=== PATIENT | female | born 1995 ===

== ENCOUNTER 2023-05-12 20:48 | Inpatient (IN) | payer BC ==
[2023-05-12 21:15] VITALS: BMI 35.3
[2023-05-12 22:08] LABS: Fetal Membranes Rupture RUPTURE DETECTED (No Rupture)
[2023-05-12] MEDS ORDERED: fentaNYL 50 mcg/mL 1 mL Vial SLOW IVP PRN (23:10)
[2023-05-12] MEDS ORDERED: Tranexamic Acid 1,000 MG/10 ML VIAL IVP PRN (23:11)
[2023-05-12] MEDS ORDERED: Lidocaine 1% (PF) 30 ML VIAL SC PRN (23:15)
[2023-05-12] MEDS ORDERED: Oxytocin 30 units/NS 500 ML 500 ML IV SCH (23:15)
[2023-05-12] MEDS ORDERED: Ibuprofen 800 MG TAB PO PRN (23:15)
[2023-05-12] MEDS ORDERED: Methylergonovine 0.2 MG/ML VIAL IM PRN (23:15)
[2023-05-12] MEDS ORDERED: Promethazine HCl 25 MG/ML VIAL IM PRN (23:15)
[2023-05-12] MEDS ORDERED: Ondansetron PF 4 MG/2 ML Vial IVP PRN (23:15)
[2023-05-12] MEDS ORDERED: Carboprost 250 MCG/ML AMP IM PRN (23:15)
[2023-05-12] MEDS ORDERED: hydrALAZINE 20 MG/ML VIAL SLOW IVP PRN (23:15)
[2023-05-12] MEDS ORDERED: Misoprostol 200 MCG TAB RC PRN (23:15)
[2023-05-12] MEDS ORDERED: Acetaminophen 500 MG TAB PO PRN (23:15)
[2023-05-12] MEDS ORDERED: Oxytocin 30 units/NS 500 ML 500 ML IVPB SCH (23:15)
[2023-05-12 23:22] LABS: Hematocrit 41.6 % (34.9-44.5); Hemoglobin 13.7 g/dL (12.0-15.5); Mean Corpuscular HGB CONC 32.9 g/dL (32.0-36.0); Mean Corpuscular Hemoglobin 27.2 pg (27.0-33.0); Mean Corpuscular Volume 82.7 fl (81.6-98.3); Platelet Count 118 10x3/uL (150-450); RBC Distribution Width 14.6 % (11.5-14.5); Red Blood Cell (RBC) Count 5.03 10x6/uL (3.90-5.03); White Blood Cell (WBC) Count 15.9 10x3/uL (3.5-10.5)
[2023-05-12 23:42] LABS: HBSAg Index 0.16 S/CO (0-0.99); Hep B Surf Ag - L&D Non-Reactive S/CO (NonReactive)
[2023-05-12 23:43] LABS: Syphilis Antibody Nonreactive (Nonreactive); Syphilis Antibody Index 0.03 S/CO (<1.00 Non-Reactive)
[2023-05-12 23:49] LABS: Mean Platelet Volume 14.3 fl (7.4-10.4)
[2023-05-13] MEDS: Misoprostol 100 MCG TAB PO SCH ×2 (02:00→06:08)
[2023-05-13] MEDS: Lactated Ringer's 1,000 ML IV SCH (09:45)
[2023-05-13] MEDS ORDERED: fentaNYL/Ropivacaine Epidural 100 ML ONE (16:24)
[2023-05-13] MEDS ORDERED: Moisturizing Cream (Eucerin) 113 GM JAR TOP PRN ×2 (17:20→21:14)
[2023-05-13] MEDS ORDERED: ePHEDrine Sulfate 50 MG/10 ML VIAL SLOW IVP PRN (17:20)
[2023-05-13] MEDS ORDERED: Ondansetron PF 4 MG/2 ML Vial IVP PRN ×4 (17:20→23:40)
[2023-05-13] MEDS ORDERED: diphenhydrAMINE 50 MG/ML VIAL IVP PRN ×2 (17:20→21:14)
[2023-05-13] MEDS ORDERED: Lactated Ringer's 500 ML IV PRN (17:20)
[2023-05-13] MEDS ORDERED: Naloxone HCl 0.4 mg/ml Vial IVP PRN ×4 (17:20→21:14)
[2023-05-13] MEDS ORDERED: Promethazine HCl 25 MG/ML VIAL IM PRN ×2 (17:20→21:14)
[2023-05-13] MEDS ORDERED: Acetaminophen 325 MG TAB PO PRN (17:20)
[2023-05-13] MEDS ORDERED: fentaNYL 2 mcg/Ropivacaine 0.2% Epidural 100 ML CADD EPIDURAL SCH (17:30)
[2023-05-13] MEDS ORDERED: Communication Order-Pharmacy FS SCH ×2 (17:30→21:15)
[2023-05-13] MEDS ORDERED: CEFAZOLIN 2 GM VIAL ONE (19:14)
[2023-05-13] MEDS ORDERED: Azithromycin 500 MG VIAL ONE (19:15)
[2023-05-13] MEDS ORDERED: Morphine PF 10 MG/10 ML VIAL ONE (19:53)
[2023-05-13] MEDS ORDERED: Lidocaine 2% MPF 10 ML AMP (For Epidural Use) ONE (19:53)
[2023-05-13] MEDS ORDERED: Dexmedetomidine 200 MCG/2 ML VIAL ONE (19:55)
[2023-05-13] MEDS ORDERED: Bicitra 30 ML UDCUP PO PRN (19:56)
[2023-05-13] MEDS ORDERED: Famotidine/PF 20 mg/2ml Vial SLOW IVP PRN (19:56)
[2023-05-13] MEDS ORDERED: Azithromycin 500 MG in Sodium Chloride 0.9% 250 ML 250 ML IVPB SCH (20:00)
[2023-05-13] MEDS ORDERED: CEFAZOLIN 2 GM in Sodium Chloride 0.9% 100 ML IVPB SCH (20:00)
[2023-05-13] MEDS ORDERED: Ondansetron PF 4 MG/2 ML Vial ONE (20:12)
[2023-05-13] MEDS ORDERED: Dexamethasone 4 mg/ml Vial ONE ×2 (20:12→20:53)
[2023-05-13] MEDS ORDERED: Ketorolac Tromethamine 30 MG (1 mL) VIAL ONE (20:59)
[2023-05-13] MEDS ORDERED: Promethazine HCl 25 MG SUPP PR PRN (21:14)
[2023-05-13] MEDS ORDERED: fentaNYL 50 mcg/mL 1 mL Vial SLOW IVP PRN (21:14)
[2023-05-13] MEDS ORDERED: Naloxone HCl 0.4 mg/ml Vial IV PRN (21:14)
[2023-05-13] MEDS ORDERED: Meperidine HCl/PF 25 MG (1 mL) VIAL SLOW IVP PRN (21:14)
[2023-05-13] MEDS ORDERED: Ketorolac Tromethamine 30 MG (1 mL) VIAL IVP SCH (21:15)
[2023-05-13] MEDS ORDERED: diphenhydrAMINE 25 MG CAP PO PRN (23:40)
[2023-05-13] MEDS ORDERED: Lanolin Ointment 7 GM TUBE TOP PRN (23:40)
[2023-05-13] MEDS ORDERED: hydrALAZINE 20 MG/ML VIAL SLOW IVP PRN (23:40)
[2023-05-13] MEDS ORDERED: Bisacodyl 10 MG SUPP PR PRN (23:40)
[2023-05-13] MEDS ORDERED: Boostrix 0.5 ML (Tdap) VIAL (>/=7 yrs of age) IM ONE (23:40)
[2023-05-13] MEDS ORDERED: Ferrous Sulfate 325 MG TAB PO SCH (23:59)
[2023-05-13] MEDS ORDERED: Docusate 100 MG CAP PO SCH (23:59)
[2023-05-14] MEDS: Ketorolac Tromethamine 30 MG (1 mL) VIAL IVP PRN ×3 (03:53→16:41)
[2023-05-14 05:40] LABS: Hematocrit 35.6 % (34.9-44.5); Hemoglobin 11.8 g/dL (12.0-15.5); Mean Corpuscular HGB CONC 33.1 g/dL (32.0-36.0); Mean Corpuscular Hemoglobin 27.4 pg (27.0-33.0); Mean Corpuscular Volume 82.8 fl (81.6-98.3); Mean Platelet Volume 14.3 fl (7.4-10.4); Platelet Count 104 10x3/uL (150-450); RBC Distribution Width 14.7 % (11.5-14.5); White Blood Cell (WBC) Count 20.4 10x3/uL (3.5-10.5)
[2023-05-14] MEDS: Lactated Ringer's 1,000 ML IV SCH (07:17)
[2023-05-14] MEDS: Misoprostol 100 MCG TAB PO SCH ×2 (07:17→07:18)
[2023-05-14] MEDS: Ferrous Sulfate 325 MG TAB PO SCH ×2 (07:21→21:31)
[2023-05-14] MEDS: Prenatal Vitamin 1 TAB PO SCH (08:57)
[2023-05-14] MEDS: Simethicone Chewable 80 MG TAB PO PRN ×2 (08:57→16:42)
[2023-05-14] MEDS: Docusate 100 MG CAP PO SCH ×2 (08:57→21:35)
[2023-05-14] MEDS ORDERED: HYDROcodone/Acetaminophen 5/325 mg Tablet PO PRN (09:15)
[2023-05-14] MEDS ORDERED: Bupivacaine 0.25% HCL 30 ML VIAL ONE (12:00)
[2023-05-14] MEDS ORDERED: Lidocaine 2% MPF 10 ML AMP (For Epidural Use) ONE (12:00)
[2023-05-14] MEDS: Ibuprofen 800 MG TAB PO SCH (21:32)
[2023-05-15] MEDS: Ibuprofen 800 MG TAB PO SCH ×3 (05:19→21:20)
[2023-05-15] MEDS: Ferrous Sulfate 325 MG TAB PO SCH ×2 (09:19→21:21)
[2023-05-15] MEDS: Docusate 100 MG CAP PO SCH ×2 (09:25→21:21)
[2023-05-15] MEDS: Prenatal Vitamin 1 TAB PO SCH (09:25)
[2023-05-15] MEDS: HYDROcodone/Acetaminophen 5/325 mg Tablet PO PRN ×2 (11:02→22:56)
[2023-05-16] MEDS: Ibuprofen 800 MG TAB PO SCH (06:06)
[2023-05-16 07:47] VITALS: BP 129/61; TEMP 98.8
[2023-05-16] MEDS: Prenatal Vitamin 1 TAB PO SCH (08:23)
[2023-05-16] MEDS: Docusate 100 MG CAP PO SCH (08:23)
[2023-05-16] MEDS: HYDROcodone/Acetaminophen 5/325 mg Tablet PO PRN (08:23)
[2023-05-16] MEDS: Ferrous Sulfate 325 MG TAB PO SCH (08:24)
== END 2023-05-16 09:45 | disposition home or self-care (01) | DRG 787 ==
LOC: CSHLD/OP 20:48 → CSHLD 23:41 → CSHPED 05-13 23:20
PROVIDERS: ADMIT Obstetrics & Gynecology; ATTEND Obstetrics & Gynecology
PROC: 10D00Z1 Extraction of Products of Conception, Low, Open Approach (ICD-10-PCS; principal; 2023-05-13)
PROC: 3E0P7VZ Introduction of Hormone into Female Reproductive, Via Natural or Artificial Opening (ICD-10-PCS; 2023-05-13)
PROC: 10907ZC Drainage of Amniotic Fluid, Therapeutic from Products of Conception, Via Natural or Artificial Opening (ICD-10-PCS; 2023-05-13)
PROC: 3E033XZ Introduction of Vasopressor into Peripheral Vein, Percutaneous Approach (ICD-10-PCS; 2023-05-13)
DX: O42.02 Full-term premature rupture of membranes, onset of labor within 24 hours of rupture (principal); O99.12 Other diseases of the blood and blood-forming organs and certain disorders involving the immune mechanism complicating childbirth; Z3A.40 40 weeks gestation of pregnancy; Z37.0 Single live birth; O76 Abnormality in fetal heart rate and rhythm complicating labor and delivery
CPT/HCPCS: 36415; 84112; 85027; 86780; 86850; 86900; 86901; 87340; J1100; J1885; J2274; J2405; J2590; J7120; S0020

== ENCOUNTER 2024-02-26 07:12 | Emergency (ER) | payer BC | END 2024-02-26 08:07 | disposition home or self-care (01) | LOC: CSHERS 07:12 | DX: R20.2 Paresthesia of skin (principal); R29.700 NIHSS score 0 | CPT/HCPCS: 99284 ==